=== PATIENT | female | born 1945 | race Caucasian/White ===

== ENCOUNTER 2016-08-26 16:47 | Emergency (ER) | payer MEDICARE ==
[~2016-08-26] VITALS: Ht 154.9 cm; Wt 85.5 kg
[~2016-08-26 16:47] MED LIST: ASPIRIN E.C. 8181 MG PO; BLOOD PRESSURE MED; COZAAR 50MG50 MG/TAB PO; CRANBERRY1 CAP PO; LEVOTHYROXINE0.05 MG PO; LIDODERM 5% PATC1 EA TP; PRAVASTATIN40 MG PO; SIMVASTATIN10 MG PO
[2016-08-26 16:51] VITALS: BP 154/74; TEMP 98.2
[2016-08-26 20:45] VITALS: PULSE 78
== END 2016-08-26 20:46 | disposition home or self-care (01) ==
LOC: COL.ER 16:47
DX: M79.671 Pain in right foot (principal); I10 Essential (primary) hypertension

== ENCOUNTER → 2018-05-04 | Outpatient (CLI) | payer MEDICARE | LOC: COL.VAS 13:30 | DX: I82.422 Acute embolism and thrombosis of left iliac vein (principal) ==